=== PATIENT | female | born 1990 | race Asian ===

== ENCOUNTER → 2023-11-18 09:27 | Outpatient (REF) | payer OTHER, SELFPAY | LOC: HWRAD 09:27 | PROVIDERS: ATTENDING PHYSICIAN Nurse Practitioner Family; FAMILY PHYSICIAN Family Medicine | DX: Z32.01 Encounter for pregnancy test, result positive (principal) | CPT/HCPCS: 76801 ==

== ENCOUNTER → 2023-12-15 14:50 | Outpatient (REF) | payer OTHER, SELFPAY | LOC: PNTC 14:50 | PROVIDERS: ATTENDING PHYSICIAN Obstetrics & Gynecology | DX: O09.529 Supervision of elderly multigravida, unspecified trimester (principal) | CPT/HCPCS: 76801; 76813 ==

== ENCOUNTER → 2024-02-02 09:59 | Outpatient (REF) | payer OTHER, SELFPAY | LOC: PNTC 09:59 | PROVIDERS: ATTENDING PHYSICIAN Obstetrics & Gynecology | DX: O09.519 Supervision of elderly primigravida, unspecified trimester (principal) | CPT/HCPCS: 76811 ==

== ENCOUNTER → 2024-03-30 09:54 | Outpatient (REF) | payer OTHER, SELFPAY | LOC: PNTC 09:54 | PROVIDERS: ATTENDING PHYSICIAN Obstetrics & Gynecology | DX: O09.529 Supervision of elderly multigravida, unspecified trimester (principal); Z85.850 Personal history of malignant neoplasm of thyroid | CPT/HCPCS: 76816 ==

== ENCOUNTER → 2024-05-05 10:27 | Outpatient (REF) | payer OTHER, SELFPAY | LOC: PNTC 10:27 | PROVIDERS: ATTENDING PHYSICIAN Obstetrics & Gynecology | DX: O09.519 Supervision of elderly primigravida, unspecified trimester (principal); O99.283 Endocrine, nutritional and metabolic diseases complicating pregnancy, third trimester | CPT/HCPCS: 76816 ==

== ENCOUNTER 2024-06-13 05:36 | Inpatient (IN) | payer OTHER, SELFPAY ==
[2024-06-13 06:03] VITALS: BP 120/82; BMI 26.1
[2024-06-13 06:21] LABS: Hematocrit 34.4 % (37.0-47.0); Hemoglobin 11.3 g/dL (12.0-16.0); Mean Corp Hgb Conc. 32.8 g/dL (33.0-37.0); Mean Corpuscular Hgb 29.2 pg (27.0-31.0); Mean Corpuscular Volume 88.9 fL (81.0-99.0); Mean Platelet Volume 10.6 fL (7.4-10.4); Platelet Count 210 10^3/uL (130-400); Red Blood Cell Count 3.87 10^6/uL (4.20-5.40); Red Cell Dist. Width 12.8 % (11.5-14.5); White Blood Cell Count 9.5 10^3/uL (4.8-10.8)
[2024-06-13] MEDS: TYLENOL 1000 MG PO (07:17)
[2024-06-13] MEDS: BICITRA 30 ML PO (07:17)
--- NOTE | 2024-06-13 11:05 | W.PN.ANS.POP ---
Anesthesia Post Operative
- Anesthesia Post Op Note
Vital Signs Stable-See Nursing Note: Yes
Airway Patent: Yes
Adequate Pain Control: Yes
Change in Mental Status: No
Current Postoperative Nausea & Vomiting: No
Anesthesia Complications: No
General Anesthetic Recall: No
Unplanned Admission: No
Post Op Hydration Adequate: Yes
- -
Pt awake and alert, resting in bed with no anesthesia related c/o at time of post op visit.
[2024-06-13] MEDS: MORPHINE SULFATE 2 MG IV (12:12)
[2024-06-13] MEDS: TORADOL 15 MG IV ×2 (14:29→20:09)
[2024-06-14] MEDS: TORADOL 15 MG IV ×2 (01:59→08:49)
[2024-06-14 05:48] LABS: Hematocrit 25.1 % (37.0-47.0); Hemoglobin 8.3 g/dL (12.0-16.0); Mean Corp Hgb Conc. 33.1 g/dL (33.0-37.0); Mean Corpuscular Hgb 29.1 pg (27.0-31.0); Mean Corpuscular Volume 88.1 fL (81.0-99.0); Mean Platelet Volume 10.4 fL (7.4-10.4); Platelet Count 170 10^3/uL (130-400); Red Blood Cell Count 2.85 10^6/uL (4.20-5.40); Red Cell Dist. Width 12.8 % (11.5-14.5); White Blood Cell Count 13.7 10^3/uL (4.8-10.8)
[2024-06-14] MEDS: FEOSOL 325 MG PO (08:49)
[2024-06-14] MEDS: SENOKOT-S 1 TABLET PO (08:49)
[2024-06-14] MEDS: PRENATAL PLUS 1 TABLET PO (08:49)
[2024-06-14 11:30] LABS: Syphilis/T. pallidum Ab Reflex Negative (Negative)
[2024-06-14] MEDS: MOTRIN 600 MG PO ×2 (14:55→21:11)
[2024-06-14] MEDS: PERCOCET 5/325 2 TABLET PO (19:16)
[2024-06-15] MEDS: PERCOCET 5/325 2 TABLET PO (01:00)
[2024-06-15] MEDS: MOTRIN 600 MG PO ×4 (03:33→21:26)
[2024-06-15] MEDS: PERCOCET 5/325 1 TABLET PO ×2 (05:21→19:46)
[2024-06-15] MEDS: SENOKOT-S 1 TABLET PO (08:54)
[2024-06-15] MEDS: PRENATAL PLUS 1 TABLET PO (08:54)
[2024-06-15] MEDS: FEOSOL 325 MG PO (08:54)
[2024-06-16] MEDS: PERCOCET 5/325 1 TABLET PO (01:35)
[2024-06-16] MEDS: MOTRIN 600 MG PO ×2 (03:51→10:37)
[2024-06-16] MEDS: SENOKOT-S 1 TABLET PO (08:44)
[2024-06-16] MEDS: PRENATAL PLUS 1 TABLET PO (08:44)
[2024-06-16] MEDS: FEOSOL 325 MG PO (08:45)
[2024-06-16] MEDS: TYLENOL 650 MG PO (08:48)
--- NOTE | 2024-06-16 10:17 | W.DS.TRANS ---
DC Summary - [employer]
-
Discharge Instructions:
Discharge Diagnosis/Procedures rcs
Diet No restrictions
Instructions:
Stand-Alone Forms: LDRP Delivery
Changes to Home Medications: No
Discharge Medications:
DC Medications w/original date entered in [employer]
Tablet 1 tab PO DAILY Supplement 07/02/20
ferrous sulfate 325 mg (65 mg iron) tablet (FeroSul) 325 mg PO DAILY 06/13/24
ibuprofen 600 mg tablet 600 mg PO Q6HPRN PRN cramps #90 tabs 06/16/24
oxycodone-acetaminophen 5 mg-325 mg tablet 1 tab PO Q4HPRN PRN moderate pain #5 tabs 06/16/24
Home Medication Changes
Pending Results: No
Total time spent discharging patient (in min): 20
== END 2024-06-16 12:45 | disposition home or self-care (01) | DRG 788 ==
LOC: LDRP 05:36
PROVIDERS: ADMITTING PHYSICIAN Obstetrics & Gynecology; FAMILY PHYSICIAN Family Medicine; REFERRING PHYSICIAN Obstetrics & Gynecology
PROC: 10D00Z1 Extraction of Products of Conception, Low, Open Approach (ICD-10-PCS; 2024-06-13)
DX: O34.211 Maternal care for low transverse scar from previous cesarean delivery (principal); N85.8 Other specified noninflammatory disorders of uterus; Z3A.39 39 weeks gestation of pregnancy; Z37.0 Single live birth
CPT/HCPCS: 36415; 85027; 86780; 86850; 86900; 86901

== ENCOUNTER → 2024-08-17 13:38 | Outpatient (REF) | payer OTHER, SELFPAY | LOC: RAD 13:38 | PROVIDERS: ATTENDING PHYSICIAN Internal Medicine Endocrinology, Diabetes & Metabolism; FAMILY PHYSICIAN Family Medicine | DX: Z00.00 Encounter for general adult medical examination without abnormal findings (principal); Z85.850 Personal history of malignant neoplasm of thyroid | CPT/HCPCS: 76536 ==